=== PATIENT | female | born 2000 | race Caucasian/White ===

== ENCOUNTER 2018-03-05 17:10 | Emergency (ER) | payer BC, OTHER ==
[~2018-03-05] VITALS: Ht 170.2 cm; Wt 86.2 kg
[2018-03-05 19:14] LABS: BILIRUBIN,URINE NEGATIVE (NEGATIVE); CLARITY,URINE CLEAR; COLOR,URINE YELLOW; GLUCOSE, URINE (UA) NEGATIVE (NEGATIVE); KETONES,URINE NEGATIVE (NEGATIVE); LEUKOCYTE ESTERASE ,URINE NEGATIVE (NEGATIVE); NITRITE,URINE NEGATIVE (NEGATIVE); PH,URINE 7 (5-9); PROTEIN,URINE NEGATIVE (NEGATIVE); UROBILINOGEN,URINE NORMAL (NORMAL)
[2018-03-05] MEDS ORDERED: NS IV 1000 ML 1,000 ML IV SCH (19:29)
[2018-03-05] MEDS ORDERED: KETOROLAC 30 MG/ML VIAL IVP STA (19:29)
[2018-03-05 19:31] LABS: BACTERIA,URINE MODERATE /HPF; WBC,URINE RARE /HPF
[2018-03-05 19:52] LABS: BASOPHILS % (AUTO) 0 % (0-10); EOSINOPHILS # (AUTO) 0.1 10^3/uL (0.0-0.3); EOSINOPHILS % (AUTO) 1 % (0-10); HEMATOCRIT 41 % (35-52); HEMOGLOBIN 14.1 G/DL (11.5-16.0); LYMPHOCYTES # (AUTO) 1.9 X 10^3 (1.0-4.0); LYMPHOCYTES % (AUTO) 27 % (12-44); MEAN CORPUSCULAR HEMOGLOBIN 31 PG (25-34); MEAN CORPUSCULAR HGB CONC 34 G/DL (32-36); MEAN CORPUSCULAR VOLUME 90 FL (80-99); MEAN PLATELET VOLUME 10.3 FL (7.4-10.4); MONOCYTES # (AUTO) 0.7 X 10^3 (0.0-1.0); MONOCYTES % (AUTO) 10 % (0-12); NEUTROPHILS # (AUTO) 4.3 X 10^3 (1.8-7.8); NEUTROPHILS % (AUTO) 61 % (42-75); PLATELET COUNT 275 10^3/uL (130-400); RED BLOOD COUNT 4.57 10^6/uL (4.35-5.85); RED CELL DISTRIBUTION WIDTH 15.5 % (10.0-14.5)
[2018-03-05 20:11] LABS: ALANINE AMINOTRANSFERASE 12 U/L (0-55); ALBUMIN 4.5 GM/DL (3.2-4.5); ALKALINE PHOSPHATASE 67 U/L (40-136); BILIRUBIN,TOTAL 1.1 MG/DL (0.1-1.0); BUN/CREATININE RATIO 9; CALCIUM 9.5 MG/DL (8.5-10.1); CARBON DIOXIDE 25 MMOL/L (21-32); CHLORIDE 106 MMOL/L (98-107); CREATININE SERUM 0.85 MG/DL (0.60-1.30); GFR ESTIMATED > 60; GLUCOSE 91 MG/DL (70-105); POTASSIUM 3.9 MMOL/L (3.6-5.0); SODIUM 140 MMOL/L (135-145); TOTAL PROTEIN 7.8 GM/DL (6.4-8.2)
[2018-03-05] MEDS ORDERED: RX-TRAMADOL 50 MG (ULTRAM) TAB PPK#4 PO STA (20:29)
[2018-03-05] MEDS ORDERED: RX-ONDANSETRON 4 MG ODT (ZOFRAN) PPK #4 PO STA (20:29)
--- NOTE | 2018-03-05 20:31 | ED Abdominal Pain ---
General Chief Complaint: Abdominal/GI Problems Stated Complaint: ABD PAIN History of Present Illness Date Seen by Provider: March 05, 2018 Time Seen by Provider: 19:00 Initial Comments 17-year-old female presents for right-sided lower quadrant pain. She reports that her symptoms began yesterday but they have gotten worse today. She vomited one time earlier today. She has no symptoms of UTI and denies previous abdominal problems. Timing/Duration: 12-24 Hours Severity/Quality: Mild Location: RLQ Radiation: No Radiation Associated Symptoms: Denies Symptoms Allergies and Home Medications Allergies Coded Allergies: amoxicillin (Verified Allergy, Unknown, 03/05/18) clavulanic acid (Verified Allergy, Unknown, 03/05/18) Patient Home Medication List Home Medication List Reviewed: Yes Review of Systems Constitutional: no symptoms reported, see HPI Gastrointestinal: See HPI, Abdominal Pain Genitourinary: No Symptoms Reported, See HPI; Denies Frequency, Denies Hematuria, Denies Pain, Denies Urgency All Other Systems Reviewed Negative Unless Noted: Yes Past Yvozgtr-Gdcodr-Nvxcit Hx Past Med/Social Hx: Reviewed Nursing Past Med/Soc Hx Patient Social History Recent Foreign Travel: No Contact w/Someone Who Travel: No Physical Exam Vital Signs Capillary Refill : General Appearance: WD/WN, no apparent distress HEENT: PERRL/EOMI, normal ENT inspection, TMs normal, pharynx normal, other Neck: non-tender, full range of motion, normal inspection Respiratory: chest non-tender, lungs clear, normal breath sounds Cardiovascular: normal peripheral pulses, regular rate, rhythm Gastrointestinal: normal bowel sounds, soft; No distended, No guarding, No rebound; tenderness (right lower quadrant), other (negative Murillo and psoas sign) Neurologic/Psychiatric: no motor/sensory deficits, alert, normal mood/affect, oriented x 3 Progress/Results/Core Measures Results/Orders Lab Results Laboratory Tests Test 03/05/18 19:06 03/05/18 19:40 Range/Units Urine Color YELLOW Urine Clarity CLEAR Urine pH 7 5-9 Urine Specific Roxton 1.010 L 1.016-1.022 Urine Protein NEGATIVE NEGATIVE Urine Glucose (UA) NEGATIVE NEGATIVE Urine Ketones NEGATIVE NEGATIVE Urine Nitrite NEGATIVE NEGATIVE Urine Bilirubin NEGATIVE NEGATIVE Urine Urobilinogen NORMAL NORMAL MG/DL Urine Leukocyte Esterase NEGATIVE NEGATIVE Urine RBC (Auto) NEGATIVE NEGATIVE Urine RBC NONE /HPF Urine WBC RARE /HPF Urine Squamous Epithelial Cells 5-10 /HPF Urine Crystals NONE /LPF Urine Bacteria MODERATE H /HPF Urine Casts NONE /LPF Urine Mucus NEGATIVE /LPF Urine Culture Indicated NO Urine Test NEGATIVE NEGATIVE White Blood Count 7.0 4.3-11.0 10^3/uL Red Blood Count 4.57 4.35-5.85 10^6/uL Hemoglobin 14.1 11.5-16.0 G/DL Hematocrit 41 35-52 % Mean Corpuscular Volume 90 80-99 FL Mean Corpuscular Hemoglobin 31 25-34 PG Mean Corpuscular Hemoglobin Concent 34 32-36 G/DL Red Cell Distribution Width 15.5 H 10.0-14.5 % Platelet Count 275 130-400 10^3/uL Mean Platelet Volume 10.3 7.4-10.4 FL Neutrophils (%) (Auto) 61 42-75 % Lymphocytes (%) (Auto) 27 12-44 % Monocytes (%) (Auto) 10 0-12 % Eosinophils (%) (Auto) 1 0-10 % Basophils (%) (Auto) 0 0-10 % Neutrophils # (Auto) 4.3 1.8-7.8 X 10^3 Lymphocytes # (Auto) 1.9 1.0-4.0 X 10^3 Monocytes # (Auto) 0.7 0.0-1.0 X 10^3 Eosinophils # (Auto) 0.1 0.0-0.3 10^3/uL Basophils # (Auto) 0.0 0.0-0.1 10^3/uL Sodium Level 140 135-145 MMOL/L Potassium Level 3.9 3.6-5.0 MMOL/L Chloride Level 106 98-107 MMOL/L Carbon Dioxide Level 25 21-32 MMOL/L Anion Gap 9 5-14 MMOL/L Blood Urea Nitrogen 8 7-18 MG/DL Creatinine 0.85 0.60-1.30 MG/DL Estimat Glomerular Filtration Rate > 60 BUN/Creatinine Ratio 9 Glucose Level 91 70-105 MG/DL Calcium Level 9.5 8.5-10.1 MG/DL Total Bilirubin 1.1 H 0.1-1.0 MG/DL Aspartate Amino Transf (AST/SGOT) 16 5-34 U/L Alanine Aminotransferase (ALT/SGPT) 12 0-55 U/L Alkaline Phosphatase 67 40-136 U/L Total Protein 7.8 6.4-8.2 GM/DL Albumin 4.5 3.2-4.5 GM/DL My Orders Orders - SHEILA DIALLO Ua Culture If Indicated (03/05/18:18) Urine Bedside (03/05/18:18) Saline Lock/Iv-Start (03/05/18 19:29) Ns Iv 1000 Ml (Sodium Chloride 0.9%) (03/05/18 19:29) Ketorolac Injection (Toradol Injection) (03/05/18 19:29) Cbc With Automated Diff (03/05/18 19:29) Comprehensive Metabolic Panel (03/05/18 19:29) Rx-Ondansetron Po (Rx-Zofran Po) (03/05/18 20:29) Rx-Tramadol Hcl (Rx-Ultram) (03/05/18 20:29) Urine -Bedside: Negative Progress Progress Note : Time: 19:00 Progress Note Initial assessment completed, recommended labs, normal saline 1 L IV. 1944 labs essentially normal, recommended Toradol 30 mg IV. Patient denies nausea at the present time. 2030 patient reports symptoms have improved, discharge instructions and return precautions reviewed with her. Departure Impression Primary Impression: Pain, abdominal, RLQ Disposition: 01 HOME, SELF-CARE Condition: Improved Departure-Patient Inst. Decision time for Depature: 20:30 Referrals: NO,LOCAL PHYSICIAN (PCP/Family) Primary Care Physician Patient Instructions: Acute Abdomen (Belly Pain), Adult (DC) Add. Discharge Instructions: Use Zofran as prescribed for nausea. Use Ultram as prescribed for pain. Clear liquid diet for the next 6 hours then progress to bland diet as tolerated. Follow-up at [facility] tomorrow if symptoms are not improving or worsen. Return to emergency department for fever greater than 101, nausea and vomiting not improved with Zofran, new symptoms or complaints. All discharge instructions reviewed with patient and/or family. Voiced understanding. Copy Copies To 1: JANENE GAN MD, AMY ARNP March 05, 2018 20:31
[2018-03-06] MEDS ORDERED: DOCU-143 PO (18:23)
[2018-03-06] MEDS ORDERED: ACHD5005 PO (18:23)
== END 2018-03-05 20:55 | disposition home or self-care (01) ==
LOC: ER 17:12
DX: R10.11 Right upper quadrant pain (principal); Z88.1 Allergy status to other antibiotic agents; Z88.8 Allergy status to other drugs, medicaments and biological substances
CPT/HCPCS: 36415; 80053; 81000; 84703; 85025; 96361; 96374

== ENCOUNTER 2018-03-06 16:22 | Day surgery (SDC) | payer BC ==
[2018-03-06 16:28] VITALS: BP 130/72
[2018-03-06] MEDS ORDERED: LIDOCAINE 1% INJ 20 ML 20 ML VIAL ONE (16:41)
[2018-03-06] MEDS ORDERED: BUPIVACAINE 0.5% 30 ML (SENSORCAINE) VIAL ONE (16:41)
[2018-03-06] MEDS ORDERED: metroNIDAZOLE 500MG/100ML IVPB 100 ML IV ONE (16:45)
[2018-03-06] MEDS ORDERED: fentaNYL INJECTION 100 MCG/2 ML AMP ONE (16:45)
[2018-03-06] MEDS ORDERED: ROCURONIUM 10 MG/ML 5 ML SYRINGE IV ONE (16:45)
[2018-03-06] MEDS ORDERED: ONDANSETRON 4 MG/2 ML (SDV) Z0FRAN ONE (16:45)
[2018-03-06] MEDS ORDERED: LIDOCAINE PF 2% 5 ML (XYLOCAINE) VIAL ONE (16:45)
[2018-03-06] MEDS ORDERED: proPOfol 200 MG/20 ML (DIPRIVAN) VIAL IV ONE (16:45)
[2018-03-06] MEDS ORDERED: MIDAZOLAM 2 MG/2 ML (VERSED) VIAL ONE (16:46)
[2018-03-06] MEDS ORDERED: SEVOFLURANE (ULTANE) 15 ML INHAL SOLN ONE ×6 (16:46→18:31)
--- NOTE | 2018-03-06 16:52 | History & Physical-Surgical ---
History of Present Illness History of Present Illness Reason for visit/HPI rlq abdominal pain, appendicitis patient is a 17 year old female who has been having rlq abdominal pain for about 3 days. Pain moderate with no radiation. She has had nausea and emesis. Fever up to 101. Patient states movement makes the right lower quadrant pain worse and nothing making it better. She was seen in the emergency dept last night and followed up with [facility] today and ct scan was performed demonstrating a scan with possible early appendicitis with appendix dilated to about [address] scan. Patient has loss of appetite. She denies sweats chills shortness of breath or chest pain. Date of Admission T Date Seen by Provider: March 06, 2018 Time Seen by Provider: 16:52 I consulted on this patient on 03/06/18 16:46 Attending Physician Sakina Blair DO Admitting Physician Marjorie,Local Physician Consult Allergies and Home Medications Allergies Coded Allergies: amoxicillin (Verified Allergy, Unknown, 03/06/18) clavulanic acid (Verified Allergy, Unknown, 03/06/18) Patient Home Medication List Home Medication List Reviewed: Yes Past Rdohjmu-Pvumbh-Lffzcp Hx Patient Social History Alcohol Use: Denies Use Recreational Drug Use: No Smoking Status: Never a Smoker Recent Foreign Travel: No Contact w/Someone Who Travel: No Recent Hopitalizations: No Surgeries History of Surgeries: Yes (MALDONADO WOOTEN RT ELBOW) Surgeries: Orthopedic Respiratory History of Respiratory Disorde: No Cardiovascular History of Cardiac Disorders: No Neurological History of Neurological Disord: No Genitourinary History of Genitourinary Disor: No Gastrointestinal History of Gastrointestinal Di: No Musculoskeletal History of Musculoskeletal Dis: No Endocrine History of Endocrine Disorders: No HEENT History of HEENT Disorders: No Cancer History of Cancer: No Psychosocial History of Psychiatric Problem: No Integumentary History of Skin or Integumenta: No Blood Transfusions History of Blood Disorders: No Family Medical History Significant Family History: No Pertinent Family Hx Constitutional: see HPI, fever EENTM: no symptoms reported Respiratory: no symptoms reported Cardiovascular: no symptoms reported Gastrointestinal: see HPI Genitourinary: no symptoms reported Musculoskeletal: no symptoms reported Skin: no symptoms reported Psychiatric/Neurological: No Symptoms Reported All Other Systems Reviewed Negative Unless Noted: Yes (Negative excepted noted.) Physical Exam Vital Signs Capillary Refill : General Appearance: No Apparent Distress HEENT: PERRL/EOMI Neck: Normal Inspection, Non Tender Respiratory: No Accessory Muscle Use, No Respiratory Distress Cardiovascular: Regular Rate, Rhythm Gastrointestinal: Soft, Tenderness (right lower quadrant) Rectal: Deferred Back: Normal Inspection Extremity: Normal Inspection Neurologic/Psychiatric: Alert, Oriented x3, No Motor/Sensory Deficits, Normal Mood/Affect, 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 Patient has been NPO since 8 am and will plan to go to OR SAKINA BLAIR DO March 06, 2018 16:52
[2018-03-06] MEDS ORDERED: ceFAZolin 1,000 MG (ANCEF) VIAL ONE (17:18)
[2018-03-06] MEDS ORDERED: MEPERIDINE (DEMEROL) INJ 50 MG/ML ONE (17:52)
[2018-03-06] MEDS ORDERED: morphine INJ 10 MG/ML 1ML (SYR OR VIAL) ONE (17:52)
[2018-03-06] MEDS ORDERED: ROPIVACAINE 5MG/ML 30ML VIAL ONE (17:55)
[2018-03-06] MEDS ORDERED: DEXAMETHASONE 10 MG/ML (DECADRON) 1 ML VIAL ONE (18:00)
[2018-03-06] MEDS ORDERED: DOCU-143 PO (18:23)
[2018-03-06] MEDS ORDERED: ACHD5005 PO (18:23)
--- NOTE | 2018-03-06 18:23 | Progress Note-Post Operative ---
Post-Operative Progess Note Surgeon (s)/Community Development Aide (s) Surgeon SAKINA HANDY DO Community Development Aide: na Pre-Operative Diagnosis appendicitis Post-Operative Diagnosis same Procedure & Operative Findings Date of Procedure 03/06/18 Procedure Performed/Findings laparoscopic appendectomy Anesthesia Type general Estimated Blood Loss Estimated blood loss (mL): minimal Specimens/Packing Specimens Removed appendix SAKINA HANDY DO March 06, 2018 18:23
--- NOTE | 2018-03-06 18:25 | Discharge Inst-Simple/Standard ---
Discharge Inst-Standard Discharge Medications New, Converted or Re-Newed RX: RX on Chart Patient Instructions/Follow Up Plan of Care/Instructions/FU: 2 weeks Blair Activity as Tolerated: No Discharge Diet: Regular Diet Other Inst to Patient Follow up Appt: Make appointment for 2 week. Instructions: No lifting greater than 10 pounds. No strenuous activity. May shower in 24 hours, no tub bath or soaking. Use incentive spirometer at home as directed. No Smoking Skin/Wound Care: You have special glue over incisions, it will fall off on its own. Symptoms to Report: Appetite Changes, Extremity Discoloration, Numbness/Tingling, Swelling Increased , Bleeding Excessive, Eyesight Changes, Pain Increased, Urine Color Change, Constipation(Persistent), Fever over 101 degree F, Pain/Pressure in chest, Urinating Difficulty, Cough Up/Vomit Blood, Heart Beat Irreg/Pounding, Pain/ Pressure in jaw, Vaginal Bleeding Increase, Cramps in feet or legs, Lightheadedness, Pain/Pressure in shoulder, Diarrhea(Persistent), Memory Changes Suddenly, Questions/Concerns, Weight gain consecutive days, Dizziness/ Fainting, Nausea/Vomiting, Shortness of Breath, Weight gain over 2 pounds If questions or concerns contact your physician Or seek help at emergency department. SAKINA BLAIR DO March 06, 2018 18:25
[2018-03-06] MEDS: morphine INJ 10 MG/ML 1ML (SYR OR VIAL) IVP PRN ×2 (19:00→19:05)
[2018-03-06] MEDS ORDERED: MEPERIDINE (DEMEROL) INJ 50 MG/ML IVP PRN (19:00)
[2018-03-06] MEDS ORDERED: ONDANSETRON 4 MG/2 ML (SDV) Z0FRAN IVP PRN (19:00)
[2018-03-06] MEDS ORDERED: HYDROcodone/APAP 5 MG/325 MG (LORTAB) TAB ONE (19:54)
[2018-03-06 20:00] VITALS: BP 123/84
[2018-03-06] MEDS: HYDROcodone/APAP 5 MG/325 MG (LORTAB) TAB PO PRN (20:02)
[2018-03-06] MEDS: LACTATED RINGERS 1,000 ML IV SCH (21:10)
[2018-03-06] MEDS: morphine INJ 4 MG/ML 1 ML (VIAL/SYRINGE) IVP PRN (22:37)
[2018-03-07] VITALS: BP 105/63
[2018-03-07] MEDS: morphine INJ 4 MG/ML 1 ML (VIAL/SYRINGE) IVP PRN (00:31)
[2018-03-07] MEDS: ceFAZolin 2 GM IV Premixed 50 ML IV SCH ×2 (01:39→08:55)
[2018-03-07] MEDS: metroNIDAZOLE 500MG/100ML IVPB 100 ML IV SCH ×2 (02:12→09:30)
[2018-03-07] MEDS: HYDROcodone/APAP 5 MG/325 MG (LORTAB) TAB PO PRN ×2 (02:13→08:55)
[2018-03-07 04:00] VITALS: BP 98/59
--- NOTE | 2018-03-07 04:59 | OPERATIVE REPORT ---
DATE OF SERVICE: 03/06/2018 PREOPERATIVE DIAGNOSIS: Right lower quadrant abdominal pain, appendicitis. POSTOPERATIVE DIAGNOSIS: Right lower quadrant abdominal pain, appendicitis. PROCEDURE: Laparoscopic appendectomy. SURGEON: Sakina Blair DO. ANESTHESIA: General. ESTIMATED BLOOD LOSS: Minimal. COMPLICATIONS: None. INDICATIONS: The patient is a 17-year-old female who has been having 3 days of right lower quadrant abdominal pain. She had a CT scan with a dilated appendix of approximately 10 mm. Her exam and CT scan findings are suggestive of appendicitis. She was explained risks and benefits of procedure and wished to proceed with the procedure. Consent was signed on the chart. DESCRIPTION OF PROCEDURE: The patient was taken to the operating suite. She was prepped and draped in sterile fashion. Surgical pause was performed. A 5 mm incision was made at the umbilicus. Kochers were used to dissect down to the fascia, grasped and elevated. Veress needle was inserted into the abdomen and pneumoperitoneum was achieved. Under direct visualization of the laparoscope, a 5 mm trocar was then placed. Under direct visualization of the camera, a 5 mm trocar was then placed at the suprapubic region and a 12 mm trocar was then placed in the left lower quadrant. The abdomen was inspected. There was a cyst at the right ovary present. The appendix was visualized and was inflamed and dilated and rigid. This was then grasped and elevated. A [place] was used to dissect around the base of the appendix. An Endo-ANNA 2.5 stapler was then fired across the base of the appendix. An Endo-ANNA 2.0 reload was then fired across the mesoappendix. This was then placed in an Endobag and removed through the 12 mm trocar site. The abdomen was then inspected. The uterus had normal appearance. The left ovary and fallopian tube had normal appearance. The gallbladder had normal appearance with the liver appearing normal and stomach being visualized. No other pathology noted. At this time, the 12 mm trocar was then removed. The fascial defect was then closed using 0 Vicryl with an Endo close. The abdomen was then desufflated, the trocars removed. Skin was then closed using 4-0 Vicryl in a subcuticular fashion. The area was washed and dried. SwiftSet was then placed over the incisions after they were washed and dried. The patient tolerated the procedure well without any complications. She was taken to recovery room in stable condition. Job ID: [id number] DocumentID: [id number] Dictated Date: 03/06/2018 19:59:58 Metal Furrer Date: 03/07/2018 04:58:55 Dictated By: SAKINA BLAIR DO
[2018-03-07 07:38] VITALS: BP 103/53
[2018-03-07] MEDS: LACTATED RINGERS 1,000 ML IV SCH (09:32)
--- NOTE | 2018-03-07 13:50 | Progress Note ---
Subjective Date Seen by Provider: March 07, 2018 Time Seen by Provider: 13:48 Subjective/Events-last exam doing well. pain controlled. tolerating diet. denies n/v fever sweats chills shortness of breath or chest pain. Objective Exam Vital Signs Date Time Temp Pulse Resp B/P (MAP) Pulse Ox O2 Delivery O2 Flow Rate FiO2 03/07/18 08:30 Room Air 03/07/18 07:38 96.3 51 18 103/53 (70) 96 Room Air 03/07/18 04:00 97.7 66 16 98/59 (72) 98 Room Air 03/07/18 00:00 99.4 78 16 105/63 (77) 94 Room Air 03/06/18 20:00 96.5 62 16 123/84 (97) 98 Room Air 03/06/18 16:28 97.6 70 16 130/72 (91) 98 Room Air I & O 03/07/18 06:59 Intake Total 600 ml Output Total 300 ml Balance 300 ml Capillary Refill : General Appearance: No Apparent Distress HEENT: PERRL/EOMI Neck: Normal Inspection, Non Tender Respiratory: No Accessory Muscle Use, No Respiratory Distress Cardiovascular: Regular Rate, Rhythm Gastrointestinal: soft (incisional tenderness, no signs of infection) Extremity: Normal Inspection Neurologic/Psychiatric: Alert, Oriented x3, No Motor/Sensory Deficits, Normal Mood/Affect, 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 Final Diagnosis rlq abdominal pain appendicitis s/p laparoscopic appendectomy SAKINA HANDY DO March 07, 2018 13:50
--- NOTE | 2018-03-07 16:23 | Anesthesia-General Post-Op ---
General Patient Condition Mental Status/LOC: Same as Preop Cardiovascular: Satisfactory Nausea/Vomiting: Absent Respiratory: Satisfactory Pain: Controlled Complications: Absent Post Op Complications Complications None Follow Up Care/Instructions Patient Instructions None needed. Anesthesia/Patient Condition Patient Condition Patient was seen this morning and she was doing well, no complaints, stable vital signs, no apparent adverse anesthesia problems. INTHIN REDMOND DO March 07, 2018 16:23
== END 2018-03-07 14:13 | disposition home or self-care (01) ==
LOC: 4TH 16:22 → SDC 16:22 → 4TH 03-07 11:44 → SDC 03-07 14:13
PROVIDERS: ATTEND Surgery
DX: K35.80 Unspecified acute appendicitis (principal)
CPT/HCPCS: 87081; 88304; 94664

== ENCOUNTER → 2018-03-06 | Outpatient (CLI) | payer BC ==
[~2018-03-06] MED LIST: ACHD5005 PO; DOCU-143 PO; IOHEXOL 350 MG/ML 100 ML (OMNIPAQUE 350) VIAL IV ONE; NS 250 ML (IVPB) BAG IV ONE
--- NOTE | 2018-03-06 13:17 | Diagnostic Imaging Report ---
PROCEDURE: CT abdomen and pelvis with contrast, rule out appendicitis. TECHNIQUE: Multiple contiguous axial images were obtained through the abdomen and pelvis after the administration of intravenous contrast. DATE: March 06, 2018. COMPARISON: None. INDICATION: 17-year-old female, right lower quadrant pain, fever, nausea. FINDINGS: The visualized portions of the lung bases are clear. The heart is not enlarged. There is no identified pericardial effusion. The liver is normal in size and contour. There is no identified liver lesion. The main, right, and left portal veins are patent. The gallbladder is unremarkable. There is no intrahepatic or extrahepatic bile duct dilation. The main pancreatic duct is not abnormally dilated. Unremarkable appearance of the pancreatic parenchyma. The spleen is normal in size. The adrenal glands are unremarkable. Unremarkable appearance of the renal parenchyma. The urinary collecting systems are not distended. There is no identified renal or ureteral stone. The urinary bladder is unremarkable in appearance. There is a low-attenuation right adnexal lesion on axial image 97 which potentially may relate to ovarian or paraovarian cyst measuring 1.5 cm in size. Additional evaluation of the uterus and adnexa on CT is unremarkable for patient age. The intestinal tract is not distended. The appendix is well seen on coronal image 49 and adjacent sequential images. The appendix does measure dilated at 10 mm in diameter. There is no pronounced inflammatory stranding adjacent to the appendix. There is no free intraperitoneal air. There is no drainable fluid collection. There is no free pelvic fluid. There is no identified abnormally enlarged lymph node within the abdomen or pelvis which meets CT size criteria for adenopathy. There is no identified acute bony abnormality. IMPRESSION: CT ABDOMEN AND PELVIS. 1. Abnormally dilated appendix measuring up to 10 mm in diameter with internal soft tissue attenuation. There is no particularly prominent adjacent inflammatory stranding. Findings do, however, raise concern for early acute appendicitis, particularly given the degree of dilation of the appendix. No evidence of perforation or abscess. 2. Probable right ovarian or paraovarian cyst measuring 1.5 cm in size. Dictated by: Dictated on workstation # [id number]
== END ==
LOC: RAD 12:34
PROVIDERS: ATTEND Internal Medicine
DX: K38.8 Other specified diseases of appendix (principal); R50.9 Fever, unspecified; R11.0 Nausea
CPT/HCPCS: 74177